=== PATIENT | male | born 1985 | race Two or more races ===

== ENCOUNTER 2021-11-14 00:59 | Emergency (ER) | payer SELFPAY ==
[~2021-11-14] VITALS: Ht 182.9 cm; Wt 68.0 kg
[2021-11-14 01:25] VITALS: BP 145/93
== END 2021-11-14 01:31 | disposition left against medical advice (07) ==
LOC: ER 01:04
DX: R07.89 Other chest pain (principal); Z53.21 Procedure and treatment not carried out due to patient leaving prior to being seen by health care provider